=== PATIENT | male | born 1985 | race Hispanic/Latino ===

== ENCOUNTER 2022-03-19 11:31 | Emergency (ER) | payer SELFPAY ==
[2022-03-19 11:31] VITALS: BP 181/86; PULSE 93; RESP 15; TEMP 37.7; O2SAT 100; BMI 35.9
--- NOTE | 2022-03-19 12:13 | DI.CT.S_ITS ---
PROCEDURE: CT PELVIS W CON INDICATIONS: wound below left buttock w/concern for abscess TECHNIQUE: After the administration of intravenous contrast, 5 mm thick sections acquired from the iliac crests to the symphysis. 5 mm coronal and sagittal reformats were acquired. For radiation dose reduction, the following was used: automated exposure control, adjustment of mA and/or kV according to patient size. COMPARISON: None. FINDINGS: Image quality: Excellent. Peritoneum and bowel: Bowel loops demonstrate normal wall thickness and caliber. No free fluid or air. Genitourinary: Bladder wall thickness is normal. Nodes and vessels: No iliac, pelvic, or inguinal adenopathy by size criteria. Iliac vessels demonstrate normal size and enhancement. Bones: No suspicious bony lesions. No CT evidence of osteomyelitis. Miscellaneous: Subcutaneous soft tissue edema and skin thickening are seen at the posterior medial aspect of the left upper thigh. Imaged changes extend to the depth of the deep investing fascial layer. No involvement of the intermuscular compartments is seen. No focal fluid collection or abscess is seen. IMPRESSION: Subcutaneous soft tissue edema and skin thickening are seen at the posterior medial left upper thigh, suspicious for cellulitis. No focal fluid collection or abscess. No soft tissue gas. No involvement of the deep intermuscular fascia. Dictated by: Louis Alejandra M.D. on 03/19/2022 at 12:55 Approved by: Louis Alejandra M.D. on 03/19/2022 at 12:59
[2022-03-19] MEDS: KETOROLAC 30 MG/ML VIAL 15 MG IV (12:20)
[2022-03-19] MEDS: HYDROCODONE/ACET 5/325 TABLET 1 TAB PO ×2 (12:22→14:18)
[2022-03-19] MEDS: ACETAMINOPHEN 325 MG TABLET 650 MG PO (12:22)
--- NOTE | 2022-03-19 12:27 | ED.SKABFB ---
HPI - Skin/Abscess/Foreign Bdy <MOIRA Lutz - Last Filed: 03/19/22 14:29> General Chief complaint: Skin/Abscess/Foreign Body Stated complaint: Stitches in leg infected- pain- sent by [facility] Time Seen by Provider: 03/19/22 12:03 Source: patient Mode of arrival: Ambulatory Limitations: language barrier History of Present Illness HPI narrative: This is a 36-year-old [place] Citizen-speaking male who Lives on [facility] and had a fall down some stairs while carrying a heavy load and sustained a laceration just below his left buttock and he was seen at [facility] and received sutures and been doing well with some worsening pain recently and today developed a fever, has had purulence drainage coming from his wound, states that he does not feel well but denies any nausea, vomiting, endorses some fever with chills. He denies any allergy to any medications, he states that he was wearing pants at the time but they tore, he did not think his wound got contaminated with dirt but his laceration was quite large and required approximately 8 sutures. Patient's family member states that the adipose tissue was hanging out and had to be trimmed for wound closure. He states that the clinic did wash out his wound very good and he received his tetanus vaccination at that time. Patient does not have any primary care provider. He checked with the [facility] this morning and they sent him here to the emergency department for evaluation. Tetanus up to date: yes Related Data Previous Rx's Medication Instructions Recorded doxycycline hyclate 100 mg tablet 100 mg PO BID 7 days #14 tabs 03/19/22 hydrocodone 5 mg-acetaminophen 325 1 tab PO BID PRN pain #14 tabs 03/19/22 mg tablet ibuprofen 600 mg tablet 600 mg PO Q8H PRN fever or pain 03/19/22 #30 tabs mupirocin 2 % topical ointment 1 applic topical BID wound 1 week 03/19/22 #15 grams Allergies Allergy/AdvReac Type Severity Reaction Status Date / Time No Known Drug Allergies Allergy Verified 03/19/22 11:36 Review of Systems <MOIRA Lutz - Last Filed: 03/19/22 14:29> Review of Systems Narrative: General: Endorses fever, chills and pain which is a 9/10 to his left buttock/upper thigh Head/Neck: denies headache, neck pain Eyes: denies visual changes, eye pain Cardio: denies chest pain, palpitations Respiratory: denies shortness of breath, cough GI: denies abdominal pain, nausea, vomiting, or diarrhea MSK: denies new joint pain, muscle weakness or swelling Skin: denies rash, itching, endorses redness and drainage coming from his left upper posterior thigh with worsening pain Neuro: denies numbness, tingling, dizziness Patient History <MOIRA Lutz - Last Filed: 03/19/22 14:29> Social History Smoking Status: Unknown if ever smoked Smoking Status: Unknown if ever smoked alcohol intake frequency: holidays/special occasions only Substance Use Type: does not use Exam <MOIRA Lutz - Last Filed: 03/19/22 14:29> Narrative Exam Narrative: Independently reviewed vitals signs and nursing notes. General: cooperative, reports that his pain is 9/10, well groomed, febrile, [place] Citizen making and some Wallisian speaking, director building at bedside and is family friend Head: atraumatic, symmetrical facial expressions Neck: supple Eyes: equal round and reactive, EOMI, conjunctiva normal Nose: nares patent, no rhinorrhea Mouth/Throat: moist mucus membranes Cardiovascular: regular rate and rhythm, no peripheral edema, warm extremities, Respiratory: normal effort, able to speak in complete sentences, no audible wheezing, stridor, or rales. No retractions or tachypnea. GI: abdomen soft, nontender to palpation, nondistended, no masses, no exquisite tenderness with exam, without guarding or rebound. MSK: moves all extremities, neurovascularly intact, no weakness, normal tone Skin: Flushed skin tone for ethnicity, brisk capillary refill, no rash, large area of erythema approximately 12 in surrounding left gluteal/upper posterior thigh wound which is about 6 cm in length, edematous, erythematous with purulent drainage, culture obtained Neuro: normal speech and cognition, A&O x3 Psych: mental status is grossly normal, congruent mood, normal affect, pleasant and cooperative Initial Vital Signs Initial Vital Signs: Vital Signs Temperature 99.8 F H 03/19/22 11:31 Pulse Rate 93 H 03/19/22 11:31 Respiratory Rate 15 03/19/22 11:31 Blood Pressure 181/86 H 03/19/22 11:31 Pulse Oximetry 100 03/19/22 11:31 Oxygen Delivery Method 03/19/22 11:31 <Jodi Dumont DO - Last Filed: 03/24/22 03:55> Initial Vital Signs Initial Vital Signs: Vital Signs Temperature 99.8 F H 03/19/22 11:31 Pulse Rate 93 H 03/19/22 11:31 Respiratory Rate 15 03/19/22 11:31 Blood Pressure 181/86 H 03/19/22 11:31 Pulse Oximetry 100 03/19/22 11:31 Oxygen Delivery Method 03/19/22 11:31 Course <MOIRA Lutz - Last Filed: 03/19/22 14:29> Orders Ordered: Discontinued Medications Acetaminophen (Acetaminophen 325 Mg Tablet) 650 mg PO NOW ONE Stop: 03/19/22 12:04 Last Admin: 03/19/22 12:22 Dose: 650 mg Documented By: CELSA Hydrocodone Bitart/Acetaminophen (Hydrocodone/Acet 5/325 Tablet) 1 tab PO NOW ONE Stop: 03/19/22 12:04 Last Admin: 03/19/22 12:22 Dose: 1 tab Documented By: CELSA Hydrocodone Bitart/Acetaminophen (Hydrocodone/Acet 5/325 Tablet) 1 tab PO NOW ONE Stop: 03/19/22 14:11 Last Admin: 03/19/22 14:18 Dose: 1 tab Documented By: CELSA Clindamycin Phosphate (Cleocin) 900 mg in 50 mls @ 50 mls/hr IV NOW ONE Stop: 03/19/22 13:17 Last Infusion: 03/19/22 14:10 Dose: 0 mls/hr Documented By: Admin: 03/19/22 12:42 Dose: 50 mls/hr Documented By: CELSA Sodium Chloride (Normal Saline 0.9%) 500 mls @ 1,000 mls/hr IV BOLUS PRN PRN Reason: Fluid replacement Last Infusion: 03/19/22 14:10 Dose: 0 mls/hr Documented By: Admin: 03/19/22 12:42 Dose: 1,000 mls/hr Documented By: CELSA Sodium Chloride (Normal Saline 0.9%) 1,000 mls @ 1,000 mls/hr IV BOLUS ONE Stop: 03/19/22 14:47 Last Admin: 03/19/22 14:23 Dose: Not Given Documented By: BEAU(2) Ketorolac Tromethamine (Ketorolac 30 Mg/Ml Vial) 15 mg IV NOW ONE Stop: 03/19/22 12:04 Last Admin: 03/19/22 12:20 Dose: 15 mg Documented By: CELSA Vital Signs Vital signs: Vital Signs - 8 hr 03/19/22 11:31 03/19/22 12:56 03/19/22 12:57 Temperature 99.8 F H Pulse Rate 93 H 79 79 Respiratory Rate 15 Blood Pressure 181/86 H Pulse Oximetry 100 99 99 Oxygen Delivery Method Room Air 03/19/22 12:57 03/19/22 13:00 03/19/22 13:00 Temperature Pulse Rate 77 Respiratory Rate Blood Pressure 128/64 132/69 Pulse Oximetry 99 Oxygen Delivery Method <Jodi Dumont, - Last Filed: 03/24/22 03:55> Orders Ordered: Discontinued Medications Acetaminophen (Acetaminophen 325 Mg Tablet) 650 mg PO NOW ONE Stop: 03/19/22 12:04 Last Admin: 03/19/22 12:22 Dose: 650 mg Documented By: CELSA Hydrocodone Bitart/Acetaminophen (Hydrocodone/Acet 5/325 Tablet) 1 tab PO NOW ONE Stop: 03/19/22 12:04 Last Admin: 03/19/22 12:22 Dose: 1 tab Documented By: CELSA Hydrocodone Bitart/Acetaminophen (Hydrocodone/Acet 5/325 Tablet) 1 tab PO NOW ONE Stop: 03/19/22 14:11 Last Admin: 03/19/22 14:18 Dose: 1 tab Documented By: CELSA Clindamycin Phosphate (Cleocin) 900 mg in 50 mls @ 50 mls/hr IV NOW ONE Stop: 03/19/22 13:17 Last Infusion: 03/19/22 14:10 Dose: 0 mls/hr Documented By: Admin: 03/19/22 12:42 Dose: 50 mls/hr Documented By: CELSA Sodium Chloride (Normal Saline 0.9%) 500 mls @ 1,000 mls/hr IV BOLUS PRN PRN Reason: Fluid replacement Last Infusion: 03/19/22 14:10 Dose: 0 mls/hr Documented By: Admin: 03/19/22 12:42 Dose: 1,000 mls/hr Documented By: CELSA Sodium Chloride (Normal Saline 0.9%) 1,000 mls @ 1,000 mls/hr IV BOLUS ONE Stop: 03/19/22 14:47 Last Admin: 03/19/22 14:23 Dose: Not Given Documented By: BEAU(2) Ketorolac Tromethamine (Ketorolac 30 Mg/Ml Vial) 15 mg IV NOW ONE Stop: 03/19/22 12:04 Last Admin: 03/19/22 12:20 Dose: 15 mg Documented By: CELSA Vital Signs Vital signs: Vital Signs - 8 hr 03/19/22 11:31 03/19/22 12:56 03/19/22 12:57 Temperature 99.8 F H Pulse Rate 93 H 79 79 Respiratory Rate 15 Blood Pressure 181/86 H Pulse Oximetry 100 99 99 Oxygen Delivery Method Room Air 03/19/22 12:57 03/19/22 13:00 03/19/22 13:00 Temperature Pulse Rate 77 Respiratory Rate Blood Pressure 128/64 132/69 Pulse Oximetry 99 Oxygen Delivery Method MDM - Skin/Abscess/Foreign Bdy <MOIRA Lutz - Last Filed: 03/19/22 14:29> Lab Data Result diagrams: 03/19/22 12:44 03/19/22 12:44 Labs: Lab Results 03/19/22 03/19/22 03/19/22 Range/Units 12:44 12:44 12:44 WBC 12.8 H (4.5-11.0) X10^3/uL RBC 4.46 L (4.5-5.9) X10^6/uL Hgb 13.6 (13.5-17.5) g/dL Hct 40.1 L (41-53) % MCV 89.9 (80-100) fL MCH 30.5 (26-34) PG MCHC 33.9 (30-36) % RDW 13.3 (11.6-14.8) % Plt Count 217 (150-400) X10^3/uL Neut % (Auto) 80.2 H (50-75) % Lymph % (Auto) 9.5 L (25-40) % Kendall % (Auto) 9.7 (3-14) % Eos % (Auto) 0.2 L (2-4) % Baso % (Auto) 0.4 (0-2) % Neut # (Auto) 62993 H (8552-7945) /uL Lymph # (Auto) 1200 (1760-9939) /uL Kendall # (Auto) 1200 H (0-900) /uL Eos # (Auto) 0 (0-450) /uL Baso # (Auto) 0 (0-100) /uL Sodium 135 L (137-145) mmol/L Potassium 3.7 (3.4-5.1) mmol/L Chloride 103 (98-107) mmol/L Carbon Dioxide 25 (22-32) mmol/L BUN 9 (9-20) mg/dL Creatinine 0.77 (0.66-1.25) mg/dL Estimated GFR > 60 (>60) mL/min BUN/Creatinine Ratio 11.7 (6-22) Glucose 101 H (70-100) mg/dL Lactate 1.2 (0.7-2.1) mmol/L Calcium 8.8 (8.4-10.2) mg/dL Total Bilirubin 1.0 (0.2-1.3) mg/dL AST 18 (17-59) IU/L ALT 16 (<50) IU/L Alkaline Phosphatase 66 (38-126) U/L Total Protein 7.3 (6.3-8.2) g/dL Albumin 4.2 (3.5-5.0) g/dL Globulin 3.1 (1.7-4.1) g/dL Albumin/Globulin Ratio 1.4 (1.0-2.8) Procalcitonin 0.05 (<0.5) ng/mL Imaging Data CT pelvis/LLE- upper posterior thigh: Radiologist's Impression: PROCEDURE:? CT PELVIS W CON ? INDICATIONS:? wound below left buttock w/concern for abscess ? TECHNIQUE:? After the administration of intravenous contrast, 5 mm thick sections acquired from the iliac crests to the symphysis.? 5 mm coronal and sagittal reformats were acquired.? For radiation dose reduction, the following was used:? automated exposure control, adjustment of mA and/or kV according to patient size.? ? COMPARISON:? None. ? FINDINGS:? Image quality:? Excellent.? ? Peritoneum and bowel:? Bowel loops demonstrate normal wall thickness and caliber.? No free fluid or air.? ? Genitourinary:? Bladder wall thickness is normal.? ? Nodes and vessels:? No iliac, pelvic, or inguinal adenopathy by size criteria.? Iliac vessels demonstrate normal size and enhancement.? ? Bones:? No suspicious bony lesions.? No CT evidence of osteomyelitis. ? Miscellaneous:? Subcutaneous soft tissue edema and skin thickening are seen at the posterior medial aspect of the left upper thigh.? Imaged changes extend to the depth of the deep investing fascial layer.? No involvement of the intermuscular compartments is seen.? No focal fluid collection or abscess is seen. ? IMPRESSION:? Subcutaneous soft tissue edema and skin thickening are seen at the posterior medial left upper thigh, suspicious for cellulitis.? No focal fluid collection or abscess.? No soft tissue gas.? No involvement of the deep intermuscular fascia. ? ? Dictated by: Louis Alejandra M.D. on 03/19/2022 at 12:55 ? ? Approved by: Louis Alejandra M.D. on 03/19/2022 at 12:59 ? MDM Narrative Medical decision making narrative: This is a 36-year-old male who sustained a wound 12 days ago to his left buttock/posterior upper thigh when he fell down and sustained a laceration to this area and had suture repair at [facility]. Patient reports that his pain started to get worse about 3 days ago with some localized swelling and mild erythema. States that last night he had a fever and came in today febrile, tachycardic, with copious amount of clear serosanguineous drainage coming from his wound. Lab work is significant for leukocytosis of 12.8, no electrolyte abnormalities, lactate 1.2, procalcitonin of 0.05. Wound culture obtained and gram stain shows moderate wbc's, 2+ GPCs and GPRs 1+. Blood cultures were obtained and are pending. Patient received 500 mL of normal saline, 900 mg of IV clindamycin, CT pelvis with contrast was obtained to evaluate for fluid collection and subcutaneous air, it shows subcutaneous soft tissue edema and skin thickening at the posterior medial left upper thigh which is suspicious for cellulitis, no focal fluid collection or abscess, no soft tissue gas, no involvement of the deep intramuscular fascia. This is reassuring, discuss patient's case with Dr. Licona from General Surgery who recommends removing the sutures, discussing that patient will have a minor amount of drainage for a prolonged period of time and that this 1 should be allowed to heal by secondary intention. He states that he would be happy to see the patient in the clinic but it will likely not be needed. He recommends the clindamycin given today but states that he likely will not need any antibiotics. Since patient lives on [facility] and does not have a primary care provider or access to medical care, opted to prescribe patient 7 days of doxycycline and mupirocin ointment for infection as needed. Discussed that he may have improvement after today, his vitals were stable on reassessment, I do not think that he needs any further fluids since he has been voiding in the emergency department. He is not having nausea vomiting. Will follow-up on culture results, recommend return to the emergency department for any worsening, given contact information for Dr. Licona and strict return precautions. Patient is appropriate and amenable to discharge home. Vital signs are stable on repeat examination is unremarkable. Patient has been informed of results. Patient has been given strict return to ER precautions for any new or worsening symptoms. Patient understands to follow up closely with outpatient providers as instructed. Patient understands plan and agrees to discharge home. All questions and concerns answered at this time. <Jodi Dumont, - Last Filed: 03/24/22 03:55> Lab Data Labs: Lab Results 03/19/22 03/19/22 03/19/22 Range/Units 12:44 12:44 12:44 WBC 12.8 H (4.5-11.0) X10^3/uL RBC 4.46 L (4.5-5.9) X10^6/uL Hgb 13.6 (13.5-17.5) g/dL Hct 40.1 L (41-53) % MCV 89.9 (80-100) fL MCH 30.5 (26-34) PG MCHC 33.9 (30-36) % RDW 13.3 (11.6-14.8) % Plt Count 217 (150-400) X10^3/uL Neut % (Auto) 80.2 H (50-75) % Lymph % (Auto) 9.5 L (25-40) % Kendall % (Auto) 9.7 (3-14) % Eos % (Auto) 0.2 L (2-4) % Baso % (Auto) 0.4 (0-2) % Neut # (Auto) 65907 H (3349-5331) /uL Lymph # (Auto) 1200 (7417-0925) /uL Kendall # (Auto) 1200 H (0-900) /uL Eos # (Auto) 0 (0-450) /uL Baso # (Auto) 0 (0-100) /uL Sodium 135 L (137-145) mmol/L Potassium 3.7 (3.4-5.1) mmol/L Chloride 103 (98-107) mmol/L Carbon Dioxide 25 (22-32) mmol/L BUN 9 (9-20) mg/dL Creatinine 0.77 (0.66-1.25) mg/dL Estimated GFR > 60 (>60) mL/min BUN/Creatinine Ratio 11.7 (6-22) Glucose 101 H (70-100) mg/dL Lactate 1.2 (0.7-2.1) mmol/L Calcium 8.8 (8.4-10.2) mg/dL Total Bilirubin 1.0 (0.2-1.3) mg/dL AST 18 (17-59) IU/L ALT 16 (<50) IU/L Alkaline Phosphatase 66 (38-126) U/L Total Protein 7.3 (6.3-8.2) g/dL Albumin 4.2 (3.5-5.0) g/dL Globulin 3.1 (1.7-4.1) g/dL Albumin/Globulin Ratio 1.4 (1.0-2.8) Procalcitonin 0.05 (<0.5) ng/mL Discharge Plan Departure Patient Disposition: Home Clinical Impression: Infection, wound status post trauma Cellulitis Qualifiers: Site of cellulitis: extremity Site of cellulitis of extremity: lower extremity Laterality: left Qualified Code(s): L03.116 - Cellulitis of left lower limb Instructions: DI for Cellulitis -- Adult, DI for Wound Infection Activity Restrictions/Additional Instructions: *You have been diagnosed with a wound infection. I removed your sutures today, please use the ABD pads to absorb drainage femur wound. You might need to tape it on under your pants so that you can go back to work when you are ready. I have sent you an antibiotic to take twice a day for the next 7 days, has a sense you pain pills, ibuprofen and hydrocodone which you can take for pain fever. Please do not drive while taking hydrocodone. Use the topical antibiotic ointment and put a little on the wound prior to putting on a dressing to help prevent bacteria from growing while it heals. Please allow for it to drain and heal from the inside out, it will take 1-2 weeks at least for this to heal. Please try to avoid any injury to this area and continuing to use ice packs as needed. I hope you feel better soon. You may make an appointment for follow-up with Dr. Licona but I would recommend coming back to the emergency department if he has any worsening so we can help get this headed in the right direction. *What to do: *Please continue to take your regular medications as directed. [x ] New medication prescriptions sent to your pharmacy: [[facility]] [ ] New medication written as a paper prescription [ ] No new medications given *Please follow up with your primary care provider in 2-3 days, call for an appointment. Let them know you were seen in the Emergency Department and that we asked that you be seen for follow-up. We will electronically transmit a record of today's note if your PCP is in our system *If you do not have a primary care provider please contact [phone] to establish care with one of [facility] primary care providers. *Return to Emergency Department if you should have any new, worsening, or concerning symptoms, such as [fever greater than 101F, chills, worsening pain, persistent vomiting or other bothersome symptoms]. Prescriptions: New mupirocin 2 % ointment 1 applic topical BID 7 Days Qty: 15 0RF doxycycline hyclate 100 mg tablet 100 mg PO BID 7 Days Qty: 14 0RF hydrocodone-acetaminophen 5-325 mg tablet 1 tab PO BID PRN (Reason: pain) Qty: 14 0RF ibuprofen 600 mg tablet 600 mg PO Q8H PRN (Reason: fever or pain) Qty: 30 0RF Referrals: Frankie Licona MD [Physician] - Nomi Fabian MD [Primary Care Provider] - Visit Report Forms: Patient Portal/API <Jodi Dumont DO - Last Filed: 03/24/22 03:55> Cosign ED Attending Cosignature Attestation: I was immediately available in the department for consultation. Documentation has been reviewed.
[2022-03-19] MEDS: CLINDAMYCIN 900 MG/50 ML PIGGYBACK 50 MG IV (12:42)
[2022-03-19] MEDS: SODIUM CHLORIDE 0.9% 500 ML 1000 ML IV (12:42)
[2022-03-19 12:56] VITALS: PULSE 79; O2SAT 99
[2022-03-19 12:57] VITALS: BP 128/64; PULSE 79; O2SAT 99
[2022-03-19 13:00] VITALS: BP 132/69; PULSE 77; O2SAT 99
[2022-03-19 13:00] LABS: Add Manual Diff / Slide Review NO; Basophils Absolute Auto 0 /uL (0-100); Basophils Percent Auto 0.4 % (0-2); Eosinophils Absolute Auto 0 /uL (0-450); Eosinophils Percent Auto 0.2 % (2-4); Hematocrit 40.1 % (41-53); Hemoglobin 13.6 g/dL (13.5-17.5); Lymphocytes Absolute Auto 1200 /uL (1100-4500); Lymphocytes Percent Auto 9.5 % (25-40); Mean Corpuscular HGB Conc 33.9 % (30-36); Mean Corpuscular Hemoglobin 30.5 PG (26-34); Mean Corpuscular Volume 89.9 fL (80-100); Monocytes Absolute Auto 1200 /uL (0-900); Monocytes Percent Auto 9.7 % (3-14); Neutrophils Absolute Auto 10300 /uL (1500-7000); Neutrophils Percent Auto 80.2 % (50-75); Platelet Count 217 X10^3/uL (150-400); Red Blood Cell Count 4.46 X10^6/uL (4.5-5.9); Red Cell Distribution Width 13.3 % (11.6-14.8); White Blood Cell Count 12.8 X10^3/uL (4.5-11.0)
[2022-03-19 13:10] LABS: Lactate (Lactic Acid) 1.2 mmol/L (0.7-2.1)
[2022-03-19 13:11] LABS: Alanine Aminotransferase 16 IU/L (<50); Albumin 4.2 g/dL (3.5-5.0); Albumin Globulin Ratio 1.4 (1.0-2.8); Alkaline Phosphatase 66 U/L (38-126); Aspartate Aminotransferase 18 IU/L (17-59); BUN Creatinine Ratio 11.7 (6-22); Blood Urea Nitrogen 9 mg/dL (9-20); Calcium 8.8 mg/dL (8.4-10.2); Carbon Dioxide 25 mmol/L (22-32); Chloride 103 mmol/L (98-107); Estimated Glomerular Filt Rate > 60 mL/min (>60); Globulin 3.1 g/dL (1.7-4.1); Glucose 101 mg/dL (70-100); HEMOLYSIS < 15 (0-50); Potassium 3.7 mmol/L (3.4-5.1); Sodium 135 mmol/L (137-145); Total Protein 7.3 g/dL (6.3-8.2)
[2022-03-19 13:32] LABS: Procalcitonin 0.05 ng/mL (<0.5)
[2022-03-19 14:39] VITALS: BP 131/81; PULSE 80; RESP 18; O2SAT 98
== END 2022-03-19 14:39 | disposition home or self-care (01) ==
PROVIDERS: Emergency Provider Nurse Practitioner Critical Care Medicine; PCP Family Medicine
DX: L03.116 Cellulitis of left lower limb (principal); T81.49XA Infection following a procedure, other surgical site, initial encounter
CPT/HCPCS: 36415; 72193; 80053; 83605; 84145; 85025; 87040; 87070; 87077; 87147; 87205; 96365; 96375; 99284; J1885; Q9967